=== PATIENT | female | born 1985 ===

== ENCOUNTER 2019-05-10 10:52 | Day surgery (SDC) | payer BC ==
[~2019-05-10] VITALS: Ht 160 cm; Wt 74.8 kg
[2019-05-10] VITALS (9 sets, daily range): BP systolic 117–134; BP diastolic 71–83
[~2019-05-10 10:52] MED LIST: LESSINA1 EACH PO; MULTIVITAMINS1 EAC2 ORAL; ceFAZolin sod 1 GM in NS 55 ML IVPB ONE
[2019-05-10] MEDS ORDERED: VITAMIN D1000 UNI1 ORAL (12:24)
[2019-05-10] MEDS ORDERED: BIOTIN1 M1 PO (12:24)
[2019-05-10] MEDS ORDERED: Midazolam 2mg/2ml Inj ONE (13:09)
[2019-05-10] MEDS ORDERED: Propofol 200mg/20ml IV ONE (13:56)
[2019-05-10] MEDS ORDERED: Dexamethasone 4mg/ml vial ONE (13:56)
[2019-05-10] MEDS ORDERED: Lidocaine 1% Plain 30 ml INJ ONE (13:57)
[2019-05-10] MEDS ORDERED: Bupivacaine 0.25% Inj 30ml INJ ONE (13:57)
[2019-05-10] MEDS ORDERED: Bacitracin 50000 Units Vial ONE (13:57)
--- NOTE | 2019-05-10 13:59 | Pre-Procedure Note/Attestation ---
Pre-Procedure Note/Attestation Complete Prior to Procedure Planned Procedure: bilateral Procedure Narrative: correction of hammer toe 5th toe with arthroplasty left foot, correction of mallet toe 4th right with arthroplasty Indications for Procedure Pre-Operative Diagnosis: painful hammer toe 5th left , painful mallet toe 4th right Attestation I attest that I discussed the nature of the procedure; its benefits; risks and complications; and alternatives (and the risks and benefits of such alternatives ), prior to the procedure, with the patient (or the patient's legal life assurance representative). I attest that, if there was a reasonable possibility of needing a blood transfusion, the patient (or the patient's legal life assurance representative) was given the [place] [employer] standardized written summary, pursuant to the Robby Pavel Blood Safety Act ([place] Health and Safety Code # 1645, as amended). I attest that I re-evaluated the patient just prior to the surgery and that there has been no change in the patient's H&P, except as documented below: Stephen Santacruz DPM May 10, 2019 13:59
[2019-05-10] MEDS ORDERED: Bacitracin Oint 15gm Tube TOPIC ONE (14:32)
[2019-05-10] MEDS ORDERED: LR 1000ml 1,000 ML IVLG SCH (14:39)
--- NOTE | 2019-05-10 14:39 | Anethesia Preoperative Eval ---
Anesthesia Pre-op PMH/ROS General Date of Evaluation: May 10, 2019 Time of Evaluation: 14:33 Anesthesiologist: Cassius ASA Score: ASA 2 Mallampati Score Class I : Soft palate, uvula, fauces, pillars visible Class II: Soft palate, uvula, fauces visible Class III: Soft palate, base of uvula visible Class IV: Only hard plate visible Mallampati Classification: Class II Surgeon: Anna Diagnosis: Bilateral hummertoes Surgical Procedure: Bilateral hummertoe correction Anesthesia History: none Family History: no anesthesia problems Allergies: Coded Allergies: No Known Allergies (Unverified , 05/10/19) Medications: see eMAR Patient NPO?: Yes Past Medical History Cardiovascular: Denies: HTN, CAD, LA, valve dz, arrhythmia, other Pulmonary: Denies: asthma, COPD, CHALO, other Gastrointestinal/Genitourinary: Reports: GERD, other - asymptomatic cholelithiasis; Denies: CRI, ESRD Neurologic/Psychiatric: Reports: other - occasional headakes, diagnosed with microadenoma of pituitary; Denies: dementia, CVA, depression/anxiety, TIA Endocrine: Denies: DM, hypothyroidism, steroids, other HEENT: Denies: cataract (L), cataract (R), glaucoma, [place] (L[place] (R), other Hematology/Immune: Denies: anemia, DVT, bleeding disorder, other Musculoskeletal/Integumentary: Denies: OA, RA, DJD, DDD, edema, other Other: other - overweight PMH Narrative: as above PSxH Narrative: C section x2, breast fibroadenoma removal Anesthesia Pre-op Phys. Exam Physician Exam Last Vital Signs Date Time Temp Pulse Resp B/P (MAP) Pulse Ox O2 Delivery O2 Flow Rate FiO2 05/10/19 12:24 Room Air 05/10/19 12:21 98.4 69 18 134/77 99 Constitutional: NAD, other Neurologic: CN 2-12 intact Cardiovascular: RRR, no M/R/G Respiratory: CTA Gastrointestinal: S/NT/ND Airway Exam Mallampati Score: Class II MO: full Neck: flexible ROM: full Teeth: intact Dentures: no upper, no lower Anesthesia Pre-op A/P Labs see chart Urine Test Test 05/10/19 12:02 Urine HCG, Qualitative Negative (NEGATIVE) Studies Pre-op Studies: EKG - NSR Risk Assessment & Plan Assessment: ASA 2 Plan: MAC with foot block Status Change Before Surgery: No Pre-Antibiotics Drug: Ancef 1gr Given Within 1 Hr of Incision: Yes Time Given: 14:26 Hong Hammonds MD May 10, 2019 14:39
[2019-05-10] MEDS ORDERED: NS Irrig 1000ml IRRIG ONE (14:40)
[2019-05-10] MEDS ORDERED: Meperidine 50mg/ml Inj(FOR RIGORS ONLY) IV PRN (14:45)
[2019-05-10] MEDS ORDERED: Ketorolac 30mg Inj IV PRN (14:45)
[2019-05-10] MEDS ORDERED: DiphenhydrAMINE 50mg/ml Inj IVP PRN (14:45)
--- NOTE | 2019-05-10 14:55 | Diagnostic Imaging Report ---
Indication: Right foot pain Technique: 3 views right foot Comparison: none Findings: The bones are osteoporotic. There is hallux valgus and slight metatarsus adductus. No acute fractures. No dislocations. The joint spaces are preserved. Impression: No acute process Osteoporosis Deformities as described
--- NOTE | 2019-05-10 15:03 | Diagnostic Imaging Report ---
Indication: Left foot pain Technique: 3 views left foot Comparison: none Findings: There are mild flexion deformities of the third fourth and fifth digits distally. There is mild hallux valgus. The joint spaces are preserved. No acute fractures. Impression: Deformities as described No acute process
--- NOTE | 2019-05-10 15:08 | Brief Operative Note ---
Immediate Post Operative Note Operative Note Pre-op Diagnosis: painful hammer toe 5th left , painful mallet toe 4th right Procedure: left 5th PIPJ arthroplasty for hammer toe correction , right 4thn Dipj arthroplasty for mallet toe correction Post-op Diagnosis: same as pre op Surgeon: stephen santacruz Anesthesiologist: ewelina Anesthesia: MAC Specimen: yes Complications: none Condition: stable Fluids: 0 Estimated Blood Loss: none Drains: none Tourniquet time: 30 Implant(s) used?: No Stephen Santacruz DPM May 10, 2019 15:08
[2019-05-10] MEDS ORDERED: Sterile Water Irrig 1000ml IRRIG ONE (15:16)
[2019-05-10] MEDS ORDERED: LR 1000ml ONE (15:16)
[2019-05-10] MEDS ORDERED: NS Irrig 1000ml ONE (15:16)
--- NOTE | 2019-05-10 15:19 | Immediate Post-Op Evaluation ---
Immediate Post-Op Evalulation Immediate Post-Op Evalulation Procedure: Bilateral feet hammertoe correction Date of Evaluation: May 10, 2019 Time of Evaluation: 15:18 IV Fluids: 1000 Blood Products: none Estimated Blood Loss: min Urinary Output: none Blood Pressure Systolic: 121 Blood Pressure Diastolic: 76 Pulse Rate: 82 Respiratory Rate: 20 O2 Sat by Pulse Oximetry: 98 Temperature (Fahrenheit): 97.8 Pain Score (1-10): 1 Nausea: No Vomiting: No Complications none Patient Status: awake, patent, none Hydration Status: adequate Hong Hammonds MD May 10, 2019 15:19
--- NOTE | 2019-05-10 16:22 | Diagnostic Imaging Report ---
Indication: Foot pain, postoperative Technique: 3 views left foot Comparison: 4 hours earlier Findings: Interim osteotomy of the head of the fifth proximal phalanx. No radiopaque foreign body demonstrated. No other significant interim change Impression: Postoperative changes of the left fifth digit. No unusual features
--- NOTE | 2019-05-10 16:25 | Diagnostic Imaging Report ---
Indication: Right foot pain, postoperative Technique: 3 views right foot Comparison: 4 hours earlier Findings: Interim osteotomy of the distal aspect of the fourth middle phalanx. No other significant interim change Impression: Postoperative changes, as described. No unusual features
--- NOTE | 2019-05-10 19:45 | Pre-op HX & Phy Repo 2 SIG ---
DATE OF ADMISSION: 05/10/2019 HISTORY OF PRESENT ILLNESS: This is a 33-year-old female presenting today with bilateral foot pain secondary to hammertoe and mallet toe for the past few years. The patient states that the pain has been progressively getting worse over the last year. The pain is mostly at the fifth PIPJ on the left and the fourth DIPJ on the right. The patient has tried numerous conservative measures including padding, offloading, shoe change therapy, but continues to experience daily pain. She reports no recent illnesses, nausea, vomiting, chills, or shortness of breath. The patient is scheduled to have surgery today at [facility]. PAST MEDICAL HISTORY: None pertinent. SOCIAL HISTORY: Denies alcohol or drug use. MEDICATIONS: None. ALLERGIES: No known drug allergies. FAMILY HISTORY: No pertinent findings. PHYSICAL EXAMINATION: VITAL SIGNS: Temperature is 98.2 degrees, pulse is 72, respirations 16, blood pressure is 130/84, O2 is 98.2 on room temperature. DERMATOLOGIC: Hyperkeratotic lesion at the PIPJ on the fifth left. No open lesion. Contraction of joint and contraction of the fourth toe on the left at the distal interphalangeal joint is noted. VASCULAR: Dorsalis pedis and posterior artery are palpable. No edema. MUSCULOSKELETAL: Full muscle strength. ASSESSMENT AND PLAN: This is a 33-year-old female with bilateral foot pain. The patient has tried numerous conservative measures; however, she is still experiencing daily pain. We are recommended surgery as an extensive next management. The risks, benefits, and alternatives were discussed with the patient in detail who understands and wants to proceed with surgical intervention. All the patient's questions have been addressed and answered. The patient is scheduled to have surgery today, 05/10/[address] [facility]. Stephen Santacruz D.P.M. DR: SURJIT JOB#: [id number] CC:
--- NOTE | 2019-05-10 20:45 | Operative Note - Dictated ---
DATE OF OPERATION: 05/10/2019 SURGEON: Stephen Santacruz D.P.M. ANESTHESIOLOGIST: . PREOPERATIVE DIAGNOSES: 1. Hammertoe, fifth, left. 2. Mallet toe, fourth toe, right. POSTOPERATIVE DIAGNOSES: 1. Hammertoe, fifth, left. 2. Mallet toe, fourth toe, right. OPERATION PERFORMED: Correction of hammertoe, fifth, left and correction of mallet toe, right fourth with arthroplasty at the PIPJ joint and DIPJ joint. HEMOSTASIS: Pneumatic ankle tourniquet at 250 mmHg, bilateral. ESTIMATED BLOOD LOSS: Minimal, less than 2 mL. MATERIALS USED: 3-0 Vicryl, 4-0 nylon. COMPLICATIONS: None. INJECTABLE: A 15 mL of 0.25% Marcaine, 1% lidocaine in 1:1 ratio was injected in the right and the left foot in terms of a Brooks block fashion at the fifth metatarsophalangeal joint on the left and fourth MPJ on the right. Postoperatively, 2 mL of dexamethasone with 4 mL of 0.25% Marcaine was given in the postoperative area for pain management and decrease of inflammation. PATHOLOGY: Bone resected from the arthroplasty site, was sent to pathology for further study. DRESSING: The incision was covered with Betadine ointment, Xeroform, 4 x 4, Kerlix, and Coban. DESCRIPTION OF PROCEDURE IN DETAIL: The patient was brought into the operating room and placed on the operating table in supine position. A time-out was then performed to verify the patient's name, procedure, site of surgery, and the consent. Monitored anesthesia care was then administered to the patient. Pneumatic ankle tourniquet was then placed at the patient's right as well as the left ankle. After 1 g of Ancef was given to the patient, approximately 15 mL of 1:1 mixture of 0.25% Marcaine and the lidocaine was given in the operative toe. Attention was then directed to the lower extremity where the extremity was scrubbed, prepared, and draped in the usual aseptic manner. An Esmarch bandage was then utilized to exsanguinate the left foot. Following examination, the ankle tourniquet was deflated to approximately 250 mmHg. Attention was then directed to the fifth right foot. The fifth toe where contraction was noticed and a corn was noticed at the PIPJ joint. A double elliptical incision was made overlying the PIPJ joint extending down to the PIPJ joint. The incision was deepened and wedge of the skin was excised in elliptical formation, encompassing the corn. At this time, as a result, the incision was done through the capsule and throughout the extensor tendon to gain access to the head of the proximal phalanx. The head of the proximal phalanx was noticed to be extensively hypertrophic and large. After the medial and lateral plantar attachment was released, approximately 3 mm of the head was osteotomized and passed from the field. At this time, I noticed that the toe was in great alignment. The area was then lavaged using normal saline and combined with antibiotic. The extensor tendon was then approximated using 3-0 Vicryl and subcutaneous skin was closed using 4-0 nylon. At this time, the dressing was applied, which consisted of Xeroform, Betadine, Duraform, bacitracin ointment, 4 x 4, Oh, and Coban. This should be noticed that before the closure, a 2 mL of dexamethasone try in combination with 4 mL of Marcaine was given in the area for postoperative pain management. Upon the completion of the dressing, the ankle tourniquet was deflated and immediate hyperemia was noted to digits 1 through 5 on the left foot. At this time, attention was then directed to the right foot where Esmarch bandage was utilized to evaluate the lower extremity of the right with 250 mmHg. Attention was then directed to the fourth toe at the distal interphalangeal joint in a contraction at mallet toe with a corn was noticed. A transverse double elliptical incision was made encompassing the hyperkeratotic tissue. The incision was deepened. The wedge of skin was then excised, then incorporated the corn. At this time, a horizontal incision was done through the capsule and through the extensor tendon to gain access to the head of the middle phalanx. The head of the middle phalanx was noticed to be extensively hypertrophic and large. After the medial and lateral plantar attachment was released, approximately 3 mm of the head was osteotomized and passed from the field. At this time as noted, the contraction has been significantly reduced. The patient's lavage was utilized to clean the wound. At this time, the extensor tendon was then approximated using 3-0 Vicryl and subsequently the skin was closed using 4-0 nylon. At this time, left over of the injection of 2 mL of dexamethasone with 4 mL of Marcaine was given in the area for postoperative pain management. The wound was then dressed using bacitracin ointment, Xeroform, 4 x 4, Oh, and Coban. The ankle tourniquet was then deflated to the right foot and immediate hyperemia was noted to digits 1 through 5 on the right foot. At this time, the patient was transferred from the operating room to recovery room with all vital signs stable. The patient will be transferred home upon clearance from the anesthesia. There were no complications to the surgery. Stephen Santacruz D.P.M. DR: YOLIE/DAMION JOB#: [id number] CC:
[2019-05-13 06:58] VITALS: BP 124/72
--- NOTE | 2019-05-13 06:58 | 48 Hour Post Anesthesia Eval ---
Post Anesthesia Evaluation Procedure: Bilateral feet hammertoe correction Date of Evaluation: May 10, 2019 Time of Evaluation: 16:10 Blood Pressure Systolic: 124 0: 72 Pulse Rate: 68 Respiratory Rate: 20 Temperature (Fahrenheit): 97.6 O2 Sat by Pulse Oximetry: 98 Airway: patent Nausea: No Vomiting: No Pain Intensity: 1 Hydration Status: adequate Cardiopulmonary Status: stable Mental Status/LOC: patient returned to baseline Follow-up Care/Observations: n/a Post-Anesthesia Complications: none Follow-up care needed: ready to discharge Hong Hammonds MD May 13, 2019 06:58
== END 2019-05-10 16:50 | disposition home or self-care (01) ==
LOC: SUR 10:52
DX: M20.42 Other hammer toe(s) (acquired), left foot (principal); M20.41 Other hammer toe(s) (acquired), right foot; K21.9 Gastro-esophageal reflux disease without esophagitis; E66.3 Overweight; Z68.29 Body mass index [BMI] 29.0-29.9, adult
CPT/HCPCS: 28285; 73630; 81025; J1100; J1885; J2001; J2250; J2704; J3490; 94003; 94150